=== PATIENT | male | born 1985 | race Caucasian/White ===

== ENCOUNTER → 2019-10-28 | Outpatient (CLI) | payer BC ==
--- NOTE | 2019-10-28 13:26 | CT ---
EXAMINATION TYPE: CT foot LT wo con DATE OF EXAM: 10/28/2019 COMPARISON: None HISTORY: 34-year-old male M79.672, Pain in left foot TECHNIQUE: Contiguous axial scanning of the left foot without IV contrast. Coronal and sagittal recon structions performed. CT DLP: 236 mGycm Automated exposure control for dose reduction was used. FINDINGS: There is some focal edema within the infracalcaneal fat pad of questionable clinical significance. Th is can be correlated clinically. Normal variant os trigonum. No delineation to the Achilles tendon. Subtalar joint is aligned. Midfoot articulation is maintained. There is an oblique fracture of the first distal phalangeal base extending to the medial cortex and t o the mid articular surface. Mild impaction resulting in 5 mm of lateral displacement. No significant articular surface step-off. IMPRESSION: MILDLY IMPACTED OBLIQUE FRACTURE OF THE FIRST DISTAL PHALANGEAL BASE. FRACTURE EXTENDS TO THE MEDIAL CORTEX DISTALLY AND MID ARTICULAR SURFACE PROXIMALLY. IMPACTION RESULTS IN 5 MM OF LATERAL DISPLACEME NT. NO SIGNIFICANT ARTICULAR SURFACE STEP-OFF.
== END | disposition home or self-care (01) ==
LOC: RADCTMAIN 12:13
PROVIDERS: ATTEND Physician Assistant
DX: S92.532A Displaced fracture of distal phalanx of left lesser toe(s), initial encounter for closed fracture (principal)

== ENCOUNTER 2019-11-08 14:28 | Day surgery (SDC) | payer BC ==
[2019-11-04 15:29] VITALS: BMI 23.1
[~2019-11-08 14:28] MED LIST: DEXAMETHASONE SOD PHOSPHATE 10 MG/ML 1 ML VIAL IV ONE; LACTATED RINGERS 1,000 ML IV SCH; LIDOCAINE 1% (10MG/ML) FOR IV START INTRADERMA PRN; SCOPOLAMINE 1.5MG/72HR PATCH TRANSDERM ONE
[2019-11-08] MEDS ORDERED: ONDANSETRON 4 MG/2 ML VIAL ONE (14:41)
[2019-11-08] MEDS ORDERED: LACTATED RINGERS 1,000 ML IV ONE ×2 (14:45→18:54)
[2019-11-08] MEDS: ONDANSETRON 4 MG/2 ML VIAL IVP ONE ×2 (14:46→18:35)
[2019-11-08] MEDS ORDERED: PROPOFOL 10 MG/ML 20 ML VIAL IV ONE (17:01)
[2019-11-08] MEDS ORDERED: fentaNYL (PF) 50 MCG/ML 2 ML AMP ONE (17:01)
[2019-11-08] MEDS ORDERED: LIDOCAINE 1% INJ 10MG/ML (20 ML MDV) ONE (17:01)
[2019-11-08] MEDS ORDERED: MIDAZOLAM 2 MG/2 ML VIAL ONE (17:01)
[2019-11-08] MEDS: HYDROmorphone 0.5 MG/0.5 ML SYRINGE IVP PRN ×5 (18:24→18:40)
[2019-11-08] MEDS ORDERED: KETOROLAC 30 MG/ML 1 ML VIAL IVP ONE (18:30)
[2019-11-08] MEDS ORDERED: traMADol 50 MG TAB PO STA (20:05)
[2019-11-08 22:47] VITALS: PULSE 74; TEMP 98.3
[2019-11-08 22:48] VITALS: BP 117/69; RESP 15
--- NOTE | 2019-11-09 06:58 | XR ---
Fluoroscopy History: Distal phalanx fx LT great toe Distal phalanx fx LT great toe. Dr. Noriega. 3 images scanned. 36 sec fluoro time.
--- NOTE | 2019-11-12 12:57 | P.OP ---
Date of Procedure: 11/08/19 Procedure(s) Performed: PREOPERATIVE DIAGNOSES: 1. Left foot great toe distal phalanx fracture, displaced POSTOPERATIVE DIAGNOSES: 1. Left foot great toe distal phalanx fracture, displaced PROCEDURES PERFORMED: 1. Left foot great toe closure reduction and percutaneous pinning ANESTHESIA: Gen. STEREO PLOTTER OPERATOR: Vira Rhodes PA-C (assistance with: Patient positioning, reduction, fixation, dressing) COMPLICATIONS: None ESTIMATED BLOOD LOSS: Less than 10 mL. DISPOSITION: To post-anesthesia care unit INDICATIONS: Lamberto is a 34-year-old male who sustained an injury to the left foot. The injury consists of a distal phalanx fracture which has recently displaced based on office x-rays. I recommended surgical reduction and stabilization of the fracture. I have discussed the steps of the operation as well as potential risks and complications as being inclusive of, but not limited to: Bleeding, infection, scarring, discomfort, blood vessel and/or nerve damage, nonunion, malunion, tendon injury, reflex sympathetic dystrophy, persistent pain, limp, anesthesia risks, , and other risks. The patient wishes to proceed with surgery and has signed a consent form. PROCEDURE: After appropriate consent was obtained, the patient was taken to the operating room placed in the supine position. Anesthesia was initiated, and after confirmation of adequate anesthesia, the patient was carefully positioned. Care was taken to make sure that all pressure points were adequately padded. Prepping and draping were completed in the usual aseptic fashion using Hibiclens prep. Timeout was called, confirming patient identity, side, procedure, and administration of antibiotics. Using C-arm imaging, the distal phalanx fracture was close reduced using manual manipulation as well as percutaneous clamp on manipulation of the fracture site with pointed reduction forceps. Once an appropriate reduction had been obtained, the pin was inserted. The fracture was then fixed with a 2.0 mm guide pin inserted retrograde through the distal phalanx and then into the proximal phalanx across the IP joint. C-arm imaging was used in 2 planes to confirm proper pin placement. It was noted that the pin did not cross the fracture site directly. This was purposeful, as the fracture fragment was quite small and the purpose of the pin was to hold the distal phalanx in a reduced position relative to the joint to prevent dorsal subluxation of the distal phalanx. The distal phalanx fracture fragment remained nondisplaced after the clamp was removed. Movement of the MTP joint with the pen did not cause any disturbance or instability of the fracture site of the distal phalanx. The pin was then cut at the skin surface and then a bone tamp was used to impact the pin just below the skin surface. Sterile dressing was then applied consisting of antibiotic ointment, nonadherent gauze, small fluff dressing between the first and second toes. Patient tolerated the procedure well and taken to recovery room in stable condition.
== END 2019-11-08 20:40 | disposition home or self-care (01) ==
LOC: OR 14:28 → 1SOBS 18:11 → OR 20:40
PROVIDERS: ATTEND Orthopaedic Surgery
DX: S92.422A Displaced fracture of distal phalanx of left great toe, initial encounter for closed fracture (principal); F17.200 Nicotine dependence, unspecified, uncomplicated; F90.9 Attention-deficit hyperactivity disorder, unspecified type; Z97.3 Presence of spectacles and contact lenses; Z79.899 Other long term (current) drug therapy; W17.89XA Other fall from one level to another, initial encounter; Y93.39 Activity, other involving climbing, rappelling and jumping off
CPT/HCPCS: 73660; 28496; J2250; J1100; J0690; J2405; J2001; J3010; J1885; J2704; J1170